=== PATIENT | female | born 1945 | race Caucasian/White ===

== ENCOUNTER → 2018-05-04 | Outpatient (CLI) | payer MEDICARE, OTHER | LOC: M.RAD 13:17 | DX: Z00.01 Encounter for general adult medical examination with abnormal findings (principal); N91.2 Amenorrhea, unspecified; E55.9 Vitamin D deficiency, unspecified; Z78.0 Asymptomatic menopausal state ==

== ENCOUNTER → 2018-12-21 | Outpatient (CLI) | payer MEDICARE, OTHER ==
--- NOTE | 2018-12-22 20:34 | SLEEP ---
[address] [address] SLEEP STUDY REPORT Name: GILLIAN NAVA Room: [facility]#: [id number] Admission: 12/21/18 Attend Phys: [place] Bill Discharge: Date of : 49 Report #: [id number] THIS REPORT FOR: //name// CC: Africa Rico DO This study has been reviewed in its entirety by a board certified sleep specialist DATE OF SERVICE: 12/21/2018 SLEEP STUDY ATTENDING PHYSICIAN: Africa Rico DO. The patient is a 73-year-old who weighs 180 pounds and 69 inches tall with a BMI of 26.6. The patient's [place] score was 5. The patient underwent a diagnostic sleep study performed at [facility]. During the night study, the patient spent 418 minutes in bed and slept for 309 minutes with a sleep efficiency of 74%. Sleep latency was prolonged at 46 minutes with a REM latency of 129 minutes. Overall, sleep architecture showed normal stage 1 and stage 2 sleep, increased N3 sleep and normal REM sleep. During the night study, the patient had 6 obstructive apneas, 2 central apneas, no mixed apneas and 20 hypopneas. The patient's apnea hypopnea index was 5.4 per hour with a REM index of 16.8 per hour and a supine index of 16.5 per hour. EKG monitoring revealed an average heart rate of 74 beats per minute. No sustained arrhythmias observed. Mild PLMs seen at an index of 10.7 per hour and 2 per hour caused EEG arousals. Nocturnal oximetry study revealed an average oxygen saturation of 94% with the lowest of 85%; 1.9 minutes were spent in oxygen saturation less than 89%. Due to low AHI, the patient did not meet the split night criteria for CPAP initiation. IMPRESSION: 1. Mild sleep apnea-hypopnea syndrome with an AHI of 5.4 per hour. AHI increased to 16.8 per hour during REM sleep and 16.5 per hour during supine sleep. 2. No clinically significant nocturnal hypoxia. 3. No clinically [place] [address] SLEEP STUDY REPORT Name: GILLIAN NAVA Room: [facility]#: [id number] Admission: 12/21/18 Attend Phys: [place] Bill Discharge: Date of : 49 Report #: [id number] RECOMMENDATIONS: 1. The patient did not meet the criteria for CPAP initiation due to low AHI. 2. Would recommend weight loss as an initial form of treatment. 3. If patient's symptoms do not improve despite effective weight loss, then consider treatment of sleep apnea with either oral appliance or a trial of CPAP. 4. Avoid supine sleep. 5. Caution regarding driving until symptoms of sleep apnea resolve with the above recommendations. <ELECTRONICALLY SIGNED> By: Leroy Herrera MD 12/22/18 2034 [id number] [id number] Aleksander Herrera MD /nt
== END ==
LOC: M.SLEEPLAB 19:47
DX: G47.33 Obstructive sleep apnea (adult) (pediatric) (principal); I10 Essential (primary) hypertension; E78.5 Hyperlipidemia, unspecified; E66.3 Overweight; E03.9 Hypothyroidism, unspecified; E78.00 Pure hypercholesterolemia, unspecified; Z68.29 Body mass index [BMI] 29.0-29.9, adult

== ENCOUNTER → 2018-12-22 | Outpatient (CLI) | payer MEDICARE, OTHER | LOC: M.ULTRA 12-16 07:30 | DX: R09.89 Other specified symptoms and signs involving the circulatory and respiratory systems (principal) ==

== ENCOUNTER → 2021-01-21 | Outpatient (CLI) | payer MEDICARE, OTHER ==
--- NOTE | 2021-01-21 15:13 | 2DMMODE ---
[place] [address] 2 D/M-MODE ECHOCARDIOGRAM Name: GILLIAN NAVA Room: [facility]#: [id number] Admission: 01/21/21 Attend Phys: Shu Okeefe Discharge: Date of : 49 Date of Service: 01/21/21 1512 Report #: [id number] THIS REPORT FOR: cc: Africa Rico,Africa Garcia,Lloyd Allen MD [facility] ~ APPROVED REPORT Study performed: 01/21/2021 13:43:38 EXAM: Comprehensive 2D, Doppler, and color-flow Echocardiogram Patient Location: Out-Patient BSA: 1.99 HR: 77 bpm BP: 110/70 mmHg Other Information Study Quality: Good Indications Hypertension/HDD 2D Dimensions IVSd: 9.52 (7-11mm) LVOT Diam: 19.86 (18-24mm) LVDd: 39.30 mm PWd: 8.26 (7-11mm) Ascending Ao: 31.59 (22-36mm) LVDs: 23.65 (25-40mm) Aortic Root: 27.75 mm Volumes Left Atrial Volume (Systole) LA ESV Index: 14.90 mL/m2 Aortic Valve AoV Peak Travon.: 1.41 m/s AO Peak Gr.: 7.97 mmHg LVOT Max P.62 mmHg AO Mean Gr.: 3.67 mmHg LVOT Mean P.34 mmHg LVOT Max V: 1.19 m/s AO V2 VTI: 22.41 cm LVOT Mean V: 0.68 m/s RENEE (VTI): 3.46 cm2 LVOT V1 VTI: 25.06 cm Mitral Valve E/A Ratio: 0.61 [place] [address] 2 D/M-MODE ECHOCARDIOGRAM Name: GILLIAN NAVA Room: [facility]#: [id number] Admission: 01/21/21 Attend Phys: Shu Okeefe Discharge: Date of : 49 Date of Service: 01/21/21 1512 Report #: [id number] MV Decel. Time: 304.58 ms MV E Max Travon.: 0.56 m/s MV PHT: 88.33 ms MVA (PHT): 2.49 cm2 TDI E/Lateral E': 6.22 E/Medial E': 5.09 Medial E' Travon.: 0.11 m/s Lateral E' Travon.: 0.09 m/s Pulmonary Valve PV Peak Travon.: 1.00 m/s PV Peak Gr.: 3.97 mmHg Tricuspid Valve RAP Estimate: 5.00 mmHg TR Peak Gr.: 15.20 mmHg RVSP: 20.20 mmHg PA Pressure: 20.20 mmHg Left Ventricle The left ventricle is normal size. There is normal LV segmental wall motion. There is normal left ventricular wall thickness. Left ventricular systolic function is normal. The left ventricular ejection fraction is within the normal range. LVEF is 55-60%. Grade I - abnormal relaxation pattern. Right Ventricle The right ventricle is normal size. The right ventricular systolic function is normal. Atria The left atrium size is normal. The right atrium size is normal. Aortic Valve The aortic valve is normal in structure. No aortic regurgitation is present. There is no aortic valvular stenosis. Mitral Valve The mitral valve is normal in structure. There is no mitral valve regurgitation noted. No evidence of mitral valve stenosis. Tricuspid Valve The tricuspid valve is normal in structure. Mild tricuspid regurgitation[place] [address] 2 D/M-MODE ECHOCARDIOGRAM Name: GILLIAN NAVA SKYLA Room: [facility]#: [id number] Admission: 01/21/21 Attend Phys: Shu Okeefe Discharge: Date of : 49 Date of Service: 01/21/21 1512 Report #: [id number] The pulmonary valve is normal in structure. Mild pulmonic regurgitation. Great Vessels The aortic root is normal in size. IVC is normal in size and collapses >50% with inspiration. Pericardium There is no pericardial effusion. <Conclusion> Left ventricular systolic function is normal. The left ventricular ejection fraction is within the normal range. <ELECTRONICALLY SIGNED> By: Lloyd Beltrán MD, [facility] 01/21/211511 11 11 Lloyd Beltrán MD, FAC /INF
== END ==
LOC: M.CRD 13:35
PROVIDERS: ATTEND Internal Medicine
DX: I08.8 Other rheumatic multiple valve diseases (principal); I10 Essential (primary) hypertension